=== PATIENT | female | born 1975 | race Caucasian/White ===

== ENCOUNTER 2020-10-02 12:53 | Emergency (ER) | payer OTHER ==
[~2020-10-02 12:53] MED LIST: COZAAR50 MG PO
[2020-10-02] MEDS ORDERED: METOPROLOL SUC100 MG PO (14:27)
[2020-10-02] MEDS ORDERED: BUSPIRONE HCL10 MG PO (14:28)
[2020-10-02] MEDS ORDERED: COZAAR100 MG PO (14:28)
[2020-10-02] MEDS ORDERED: QUETIAPINE FUM100 MG PO (14:29)
== END 2020-10-02 17:10 | disposition home or self-care (01) ==
LOC: FER 12:53
DX: M17.11 Unilateral primary osteoarthritis, right knee (principal); I10 Essential (primary) hypertension; Z91.041 Radiographic dye allergy status
CPT/HCPCS: 73564